=== PATIENT | male | born 1960 | race Caucasian/White ===

== ENCOUNTER 2018-07-01 10:30 | Inpatient (IN) ==
[2018-07-01] MEDS ORDERED: ALUM/MAG/SIMETH/LIDO VISC 1:1 30 ML BOTTLE PO STA (11:08)
[2018-07-01] MEDS ORDERED: NITROGLYCERIN 2% OINT 1 INCH/GM PACK TOP STA (11:08)
[2018-07-01] MEDS ORDERED: MORPHINE 4 MG/1 ML VIAL IV STA (11:08)
[2018-07-01] MEDS ORDERED: ASPIRIN 325 MG TABLET PO STA (11:08)
[2018-07-01] MEDS ORDERED: ONDANSETRON 4 MG/2 ML VIAL IV STA (11:08)
[2018-07-01 11:22] LABS: Basophils # 0.1 10*3/uL (0.0-0.2); Basophils % 0.3 % (0.0-0.8); Eosinophils % 0.1 % (0.00-10.9); Hematocrit 43.8 VOL% (42.0-52.0); Hemoglobin 15.2 GM/DL (14.0-18.0); Immature Granulocytes % 1.3 %; Immature Granulocytes Absolute 0.25 #; Lymphocytes # 0.4 10*3/uL (1.4-4.0); Lymphocytes % 2.3 % (21.2-54.2); Mean Corpuscular HGB Conc 34.7 GM/DL (32-36); Mean Corpuscular Hemoglobin 30 PG (27-34); Mean Corpuscular Volume 86.1 FL (87-102); Mean Platelet Volume 9.7 FL (9.6-12.0); Monocytes # 0.8 10*3/uL (0.11-0.8); Monocytes % 4.1 % (1.7-12.7); Neutrophils # 17.6 10*3/uL (1.4-7.4); Neutrophils % 91.9 % (38.7-73.9); Platelet Count 215 T/CUMM (130-400); Red Blood Count 5.09 MC/CUMM (3.8-5.5); Red Cell Distribution Width 13.5 % (9.3-17.3); White Blood Count 19.2 T/CUMM (4-12)
[2018-07-01 11:37] LABS: Apearance,Urine CLEAR (Clear); Bacteria,Urine Occasional /HPF (Few); Bilirubin,Urine Negative (Negative); Blood, Urine Negative (Negative); Glucose,Urine (UA) Negative (Negative); Hyaline Casts,Urine 1 /LPF (0-3); Ketones,Urine 5 mg/dL (Negative); Mucus,Urine Occasional /LPF (Occasional); Nitrite,Urine Negative (Negative); PT Patient Result 10.5 SECS; Protein,Urine 30 MG/DL; RBC,Urine 1 /HPF (0-4); Squamous Epithelial Cell,Urine Occasional /HPF (0-10); Urine Color Yellow (Yellow); Urine Specific Gravity 1.019 (1.001-1.035); WBC,Urine 1 /HPF (0-6)
[2018-07-01 11:41] LABS: Barbiturates Screen,Urine Negative (Negative); Benzodiazepines Screen,Urine Positive (Negative); Cannabinoid Screen,Urine Negative (Negative); Opiate Screen,Urine Negative (Negative); Phencyclidine Screen,Urine Negative (Negative)
[2018-07-01 11:42] LABS: Band Neutrophils 20 % (0-10); Eosinophils 1 % (0-10); Lymphocytes 2 % (20-55); Segmented Neutrophils 74 % (50-85); Total Cells Counted 100
[2018-07-01 11:43] LABS: Albumin 4.2 G/DL (3.4-5.0); Bilirubin,Total 1.1 MG/DL (0.2-1.0); Calcium 9.8 MG/DL (8.5-10.1); Platelet Estimate Normal; Potassium 3.5 MMOL/L (3.5-5.1); Total Protein 7.6 G/DL (6.4-8.3)
[2018-07-01] MEDS ORDERED: MAGNESIUM SULF RIDER 2 GM in PREMIX 1 EACH IV STA (12:45)
[2018-07-01] MEDS ORDERED: POTASSIUM CHLORIDE 20 MEQ TABLET PO PRN (13:33)
[2018-07-01] MEDS ORDERED: MAGNESIUM SULF RIDER 2 GM in PREMIX 1 EACH IV PRN ×2 (13:33→15:27)
[2018-07-01] MEDS ORDERED: ONDANSETRON 4 MG/2 ML VIAL IV PRN (13:33)
[2018-07-01] MEDS ORDERED: diphenhydrAMINE CAP 25 MG CAPSULE PO PRN (13:33)
[2018-07-01] MEDS ORDERED: NICOTINE 21 MG/24 HR PATCH TRANSDERM PRN (13:33)
[2018-07-01] MEDS ORDERED: DOCUSATE SODIUM 100 MG CAPSULE PO PRN (13:33)
[2018-07-01] MEDS ORDERED: MAGNESIUM SULF RIDER 4 GM in PREMIX 1 EACH IV PRN (13:33)
[2018-07-01] MEDS ORDERED: guaiFENesin/DM ER 600-30 MG TABLET PO PRN (13:33)
[2018-07-01] MEDS ORDERED: BISACODYL 5 MG TABLET PO PRN (13:33)
[2018-07-01] MEDS ORDERED: ZALEPLON 5 MG CAPSULE PO PRN (13:33)
[2018-07-01] MEDS ORDERED: ACETAMINOPHEN 325 MG TABLET PO PRN (13:33)
[2018-07-01] MEDS ORDERED: ENOXAPARIN 100 MG/ML SYRINGE SUBCUT ONE ×2 (13:40→14:16)
[2018-07-01] MEDS ORDERED: NITROGLYCERIN SL 0.4 MG TABLET SL PRN (13:42)
[2018-07-01] MEDS: PANTOPRAZOLE 40 MG TABLET PO SCH (14:15)
[2018-07-01 14:56] LABS: CKMB % 5.5 %
[2018-07-01] MEDS ORDERED: POTASSIUM CHLORIDE RIDER 10 MEQ in PREMIX 1 EACH IV PRN (15:27)
[2018-07-01 17:38] LABS: CKMB % 6.2 %
[2018-07-01] MEDS: NITROGLYCERIN 2% OINT 1 INCH/GM PACK TOP SCH ×2 (18:10→20:42)
[2018-07-01] MEDS: METOPROLOL TARTRATE 25 MG TABLET PO SCH ×2 (18:10→21:45)
[2018-07-01] MEDS: MORPHINE 4 MG/1 ML VIAL IV PRN ×2 (18:31→22:32)
[2018-07-01] MEDS: LOSARTAN 50 MG TABLET PO SCH (21:44)
[2018-07-01] MEDS: MAGNESIUM HYDROXIDE SUSP 30 ML UDCUP PO SCH (21:44)
[2018-07-01] MEDS: ESCITALOPRAM 10 MG TABLET PO SCH (21:44)
[2018-07-01] MEDS: POTASSIUM CHLORIDE 20 MEQ TABLET PO SCH (21:45)
[2018-07-01] MEDS: ROSUVASTATIN 20 MG TABLET PO SCH (21:45)
[2018-07-01] MEDS: hydroCHLOROthiazide 12.5 MG CAPSULE PO SCH (21:45)
[2018-07-01] MEDS: CLORAZEPATE 7.5 MG TABLET PO SCH (21:45)
[2018-07-02] MEDS: NITROGLYCERIN 2% OINT 1 INCH/GM PACK TOP SCH ×4 (00:03→19:52)
[2018-07-02 04:04] LABS: Basophils % 0.3 % (0.0-0.8); Hematocrit 40.4 VOL% (42.0-52.0); Hemoglobin 13.7 GM/DL (14.0-18.0); Immature Granulocytes Absolute 0.12 #; Lymphocytes # 0.6 10*3/uL (1.4-4.0); Lymphocytes % 4.6 % (21.2-54.2); Mean Corpuscular HGB Conc 33.9 GM/DL (32-36); Mean Corpuscular Hemoglobin 29 PG (27-34); Mean Corpuscular Volume 85.8 FL (87-102); Mean Platelet Volume 10.4 FL (9.6-12.0); Monocytes # 0.6 10*3/uL (0.11-0.8); Monocytes % 4.9 % (1.7-12.7); Neutrophils # 10.6 10*3/uL (1.4-7.4); Neutrophils % 89.2 % (38.7-73.9); Platelet Count 191 T/CUMM (130-400); Red Blood Count 4.71 MC/CUMM (3.8-5.5); Red Cell Distribution Width 13.9 % (9.3-17.3); White Blood Count 11.9 T/CUMM (4-12)
[2018-07-02 04:17] LABS: Calcium 8.6 MG/DL (8.5-10.1); Potassium 3.7 MMOL/L (3.5-5.1)
[2018-07-02 04:22] LABS: Calcium 8.4 MG/DL (8.5-10.1); Potassium 3.7 MMOL/L (3.5-5.1); Risk Ratio 2.21; VLDL CHOLESTEROL 29.6 MG/DL
[2018-07-02 04:52] LABS: Band Neutrophils 1 % (0-10); Lymphocytes 3 % (20-55); Platelet Estimate Normal; Segmented Neutrophils 94 % (50-85); Total Cells Counted 100
[2018-07-02] MEDS: SODIUM CHLORIDE 0.9% 1,000 ML IV SCH ×2 (05:24→14:18)
[2018-07-02] MEDS ORDERED: ENOXAPARIN 40 MG/0.4 ML SYRINGE ONE (07:29)
[2018-07-02] MEDS ORDERED: DIAZEPAM 5 MG TABLET PO ONE (08:00)
[2018-07-02] MEDS ORDERED: diphenhydrAMINE CAP 25 MG CAPSULE PO PRN (08:00)
[2018-07-02] MEDS: METOPROLOL TARTRATE 25 MG TABLET PO SCH ×2 (08:06→21:20)
[2018-07-02] MEDS: ASPIRIN EC 81 MG TABLET PO SCH (08:07)
[2018-07-02] MEDS ORDERED: LIDOCAINE 1% 20 ML VIAL ONE (08:34)
[2018-07-02] MEDS ORDERED: fentaNYL 100 MCG/2 ML VIAL ONE (08:34)
[2018-07-02] MEDS ORDERED: MIDAZOLAM 2 MG/2 ML VIAL ONE (08:34)
[2018-07-02] MEDS ORDERED: ENOXAPARIN 40 MG/0.4 ML SYRINGE SUBCUT SCH (09:00)
[2018-07-02] MEDS ORDERED: TIROFIBAN 5,000 MCG/100 ML PREMIX IV ONE (09:17)
[2018-07-02] MEDS ORDERED: ENOXAPARIN 30 MG/0.3 ML SYRINGE ONE (09:17)
[2018-07-02] MEDS ORDERED: TICAGRELOR 90 MG TABLET ONE (09:17)
[2018-07-02] MEDS: TIROFIBAN 5,000 MCG/100 ML PREMIX IV SCH ×2 (09:21→19:55)
[2018-07-02] MEDS: POTASSIUM CHLORIDE 20 MEQ TABLET PO SCH ×2 (14:18→21:20)
[2018-07-02] MEDS: MAGNESIUM HYDROXIDE SUSP 30 ML UDCUP PO SCH ×2 (14:19→21:23)
[2018-07-02] MEDS: MULTIVITAMIN (CENTRUM) TABLET PO SCH (14:19)
[2018-07-02] MEDS: PANTOPRAZOLE 40 MG TABLET PO SCH (14:19)
[2018-07-02] MEDS: hydroCHLOROthiazide 12.5 MG CAPSULE PO SCH (21:19)
[2018-07-02] MEDS: ROSUVASTATIN 20 MG TABLET PO SCH (21:19)
[2018-07-02] MEDS: ESCITALOPRAM 10 MG TABLET PO SCH (21:19)
[2018-07-02] MEDS: CLORAZEPATE 7.5 MG TABLET PO SCH (21:20)
[2018-07-02] MEDS: LOSARTAN 50 MG TABLET PO SCH (21:20)
[2018-07-02] MEDS: TICAGRELOR 90 MG TABLET PO SCH (21:20)
[2018-07-03] MEDS: NITROGLYCERIN 2% OINT 1 INCH/GM PACK TOP SCH ×2 (00:35→10:29)
[2018-07-03] MEDS: SODIUM CHLORIDE 0.9% 1,000 ML IV SCH ×2 (00:36→10:29)
[2018-07-03 04:22] LABS: Basophils % 0.3 % (0.0-0.8); Eosinophils # 0.1 10*3/uL (0.0-0.87); Eosinophils % 0.5 % (0.00-10.9); Hematocrit 36.3 VOL% (42.0-52.0); Hemoglobin 12.2 GM/DL (14.0-18.0); Immature Granulocytes % 0.6 %; Immature Granulocytes Absolute 0.07 #; Lymphocytes # 1.1 10*3/uL (1.4-4.0); Lymphocytes % 10.2 % (21.2-54.2); Mean Corpuscular HGB Conc 33.6 GM/DL (32-36); Mean Corpuscular Hemoglobin 30 PG (27-34); Mean Corpuscular Volume 87.9 FL (87-102); Mean Platelet Volume 10.4 FL (9.6-12.0); Monocytes # 0.9 10*3/uL (0.11-0.8); Monocytes % 8.6 % (1.7-12.7); Neutrophils # 8.7 10*3/uL (1.4-7.4); Neutrophils % 79.8 % (38.7-73.9); Platelet Count 159 T/CUMM (130-400); Red Blood Count 4.13 MC/CUMM (3.8-5.5); Red Cell Distribution Width 13.9 % (9.3-17.3); White Blood Count 10.9 T/CUMM (4-12)
[2018-07-03 05:07] LABS: Osmolality,Calculated 267.2 MOS/KG (273-304); Potassium 3.7 MMOL/L (3.5-5.1)
[2018-07-03 05:17] LABS: Blood Urea Nitrogen 10 MG/DL (7-18); Calcium 8.1 MG/DL (8.5-10.1); Glucose 110 MG/DL (74-106); Osmolality,Calculated 267.2 MOS/KG (273-304); Potassium 3.7 MMOL/L (3.5-5.1); Sodium 134 MMOL/L (136-145)
[2018-07-03] MEDS: MULTIVITAMIN (CENTRUM) TABLET PO SCH (09:48)
[2018-07-03] MEDS: MAGNESIUM HYDROXIDE SUSP 30 ML UDCUP PO SCH (09:48)
[2018-07-03] MEDS: METOPROLOL TARTRATE 25 MG TABLET PO SCH (09:48)
[2018-07-03] MEDS: POTASSIUM CHLORIDE 20 MEQ TABLET PO SCH (09:48)
[2018-07-03] MEDS: ASPIRIN EC 81 MG TABLET PO SCH (09:48)
[2018-07-03] MEDS: TICAGRELOR 90 MG TABLET PO SCH (09:54)
[2018-07-03] MEDS: PANTOPRAZOLE 40 MG TABLET PO SCH (09:54)
[2018-07-03 12:09] VITALS: BP 118/66
== END 2018-07-03 13:40 | disposition home or self-care (01) | DRG 247 ==
LOC: N.EDINP 10:30 → N.ED 10:30 → N.TELES 19:07
PROVIDERS: ADMIT Internal Medicine Cardiovascular Disease; ATTEND Internal Medicine Cardiovascular Disease